=== PATIENT | male | born 1960 | race Native Hawaiian/Other Pacific Islander ===

== ENCOUNTER 2019-04-06 14:54 | Emergency (ER) | payer OTHER ==
[~2019-04-06] VITALS: Ht 188 cm; Wt 108.9 kg
[2019-04-06 14:58] VITALS: BP 132/97; TEMP 97.6
[2019-04-06] MEDS ORDERED: METF500T PO (15:16)
== END 2019-04-06 15:31 | disposition home or self-care (01) ==
LOC: ED 14:54
DX: S50.862A Insect bite (nonvenomous) of left forearm, initial encounter (principal)
CPT/HCPCS: 99282

== ENCOUNTER 2019-09-19 18:05 | Emergency (ER) | payer OTHER ==
[~2019-09-19] VITALS: Ht 182.9 cm; Wt 111.1 kg
[~2019-09-19 18:05] MED LIST: METF500T PO
[2019-09-19 19:04] LABS: PLATELET COUNT 236 K/uL (142-355)
[2019-09-19 19:39] LABS: POTASSIUM 3.4 mmol/L (3.6-5.2)
[2019-09-19 22:50] VITALS: BP 120/78; TEMP 98.4
== END 2019-09-19 22:50 | disposition home or self-care (01) ==
LOC: ED 18:05
PROVIDERS: Student in an Organized Health Care Education/Training Program
DX: J11.1 Influenza due to unidentified influenza virus with other respiratory manifestations (principal); E86.0 Dehydration
CPT/HCPCS: 80048; 83735; 85027; 87502; 93005; 96360; 96361; 96375; 99284; J1885; J2405